=== PATIENT | female | born 1995 | race Caucasian/White ===

== ENCOUNTER 2016-11-07 22:33 | Emergency (ER) | payer OTHER ==
[2016-11-07 22:40] VITALS: BP 111/83; PULSE 71; TEMP 97.9; BMI 21.7
--- NOTE | 2016-11-07 23:28 | PDOC ---
History of Present Illness - General History Source: Patient Exam Limitations: No Limitations <Damir Eisenberg - Last Filed: 11/07/16 23:24> - General History Source: Patient, Old Records Exam Limitations: No Limitations - History of Present Illness Initial Comments: 11/07/16 23:28 The patient is a year 21 old female with no significant past medical history who presents to the ED with sore throat for one month. The patient states that her sore throat occasionally stops for one day at a time but has otherwise been constant. The patient states that she has an upcoming ENT appointment for evaluation of possible GERD. The patient denies fever and cough. <Renaldo Flynn - Last Filed: 11/08/16 00:12> - General Chief Complaint: Sore Throat Stated Complaint: SORE THROAT Time Seen by Provider: 11/07/16 23:11 Past History - Psycho/Social/Smoking Cessation Hx Anxiety: No Suicidal Ideation: No Smoking History: Never smoked Number of Cigarettes Smoked Daily: 0 Information on smoking cessation initiated: No Hx Alcohol Use: No Drug/Substance Use Hx: No Substance Use Type: None <Damir Eisenberg - Last Filed: 11/07/16 23:24> <Renaldo Flynn - Last Filed: 11/08/16 00:12> - Past Medical History Allergies/Adverse Reactions: Allergies Allergy/AdvReac Type Severity Reaction Status Date / Time cat dander Allergy Verified 11/07/16 22:38 Home Medications: Ambulatory Orders Famotidine [Pepcid] 20 mg PO DAILY #7 tablet 11/07/16 Review of Systems - Review of Systems Able to Perform ROS?: Yes HEENTM: Yes: Symptoms Reported, See HPI, Throat Pain, Throat Swelling, Other <Renaldo Flynn - Last Filed: 11/08/16 00:12> *Physical Exam - Vital Signs Last Vital Signs Temp Pulse Resp BP Pulse Ox 97.9 F 71 14 111/83 97 11/07/16 22:38 11/07/16 22:38 11/07/16 22:38 11/07/16 22:38 11/07/16 22:38 - Physical Exam General Appearance: Yes: Nourished, Appropriately Dressed. No: Apparent Distress HEENT: positive: Normal ENT Inspection Neck: positive: Normal Thyroid, Supple. negative: Tender, Carotid bruit Respiratory/Chest: positive: Lungs Clear, Normal Breath Sounds. negative: Chest Tender, Respiratory Distress Cardiovascular: positive: Regular Rhythm, Regular Rate Gastrointestinal/Abdominal: positive: Normal Bowel Sounds, Soft Lymphatic: negative: Adenopathy Integumentary: positive: Normal Color Neurologic: positive: Fully Oriented, Alert, Normal Mood/Affect, Normal Response , Motor Strength 5/5 <Damir Eisenberg - Last Filed: 11/07/16 23:24> - Vital Signs Last Vital Signs Temp Pulse Resp BP Pulse Ox 97.9 F 71 14 111/83 97 11/07/16 22:38 11/07/16 22:38 11/07/16 22:38 11/07/16 22:38 11/07/16 22:38 <Renaldo Flynn - Last Filed: 11/08/16 00:12> *DC/Admit/Observation/Transfer <Damir Eisenberg - Last Filed: 11/07/16 23:24> - Attestations Scribe Attestion: 11/07/16 23:28 Documentation prepared by Renaldo Flynn, acting as medical library assistant for Damir Eisenberg MD. <Renaldo Flynn - Last Filed: 11/08/16 00:12> Diagnosis at time of Disposition: Sore throat - Discharge Dispostion Disposition: HOME Condition at time of disposition: Stable - Prescriptions Prescriptions: Famotidine [Pepcid] 20 mg PO DAILY #7 tablet - Patient Instructions Additional Instructions: TAKE MEDICATIONS PRESCRIBED PLENTY OF FLUIDS (WATER/GATORADE) EAT FREQUENT, SMALL MEALS THROUGHOUT THE DAY MAALOX, 30 ml 1/2 HOUR AFTER MEALS AND AT BED TIME RETURN IF FEVER, VOMITING, SEVERE PAIN SEE YOUR ENT DOCTOR PLANNED.
[2016-11-07] MEDS ORDERED: DEXAMETHASONE 4 MG TABLET (FP) PO ONE (23:29)
[2016-11-07] MEDS ORDERED: RANITIDINE HCL 150 MG TABLET (FP) ONE (23:42)
== END 2016-11-07 23:51 | disposition home or self-care (01) ==
LOC: JER 22:33 → JERFT 22:33 → JER 23:51
DX: J02.9 Acute pharyngitis, unspecified (principal)
CPT/HCPCS: 99281-25